=== PATIENT | male | born 1965 | race Caucasian/White ===

== ENCOUNTER 2022-08-05 11:40 | Emergency (ER) | payer MEDICARE ==
[2022-08-05 12:13] LABS: #Basophils 0.1 thou/uL (0.0-0.2); #Eosinphils 0.3 thou/uL (0.0-0.7); #Lymphocytes 1.3 thou/uL (1.20-3.40); %Basophils 0.5 % (0.0-1.0); %Eosinophils 3.2 % (0.0-10.0); %Lymphocytes 12.3 % (21.0-51.0); %Monocytes 9.6 % (0.0-10.0); %Neutrophils 74.4 % (42.0-75.0); Hemoglobin 18.3 g/dL (14.0-18.0); Mean Corpuscular HGB CONC 34.6 g/dL (32.0-36.0); Mean Corpuscular Hemoglobin 31.6 pg (27.0-31.0); Mean Corpuscular Volume 91.3 fl (78.0-98.0); Mean Platelet Volume 8.2 fL (7.4-10.4); Platelet Count 199 10x3/uL (130-400); RBC Distribution Width 13.2 % (11.5-14.5); White Blood Cell (WBC) Count 10.8 10x3/uL (4.8-10.8)
[2022-08-05 12:40] LABS: ALT (SGPT) 25 U/L (8-55); AST (SGOT) 22 U/L (5-34); Albumin 4.1 g/dL (3.5-5.0); Alkaline Phosphatase 136 U/L (40-110); Anion Gap 12 mmol/L (10-20); BUN (Urea Nitrogen) 14 mg/dL (8.4-25.7); Bilirubin, Total 0.8 mg/dL (0.2-1.2); Calc. Creatinine Clearance 0 mL/min (70-130); Calcium 9.8 mg/dL (7.8-10.44); Carbon Dioxide 28 mmol/L (22-29); Chloride 103 mmol/L (98-107); Estimated GFR 62; Glucose 177 mg/dL (70-105); Potassium 3.7 mmol/L (3.5-5.1); Protein, Total 7.1 g/dL (6.0-8.3); Sodium 139 mmol/L (136-145)
[2022-08-05] MEDS ORDERED: Levofloxacin 500 mg/D5W 100 ml Premix Bag ONE (14:14)
[2022-08-05] MEDS ORDERED: Fentanyl 250 MCG/5 ML VIAL ONE (14:18)
[2022-08-05] MEDS ORDERED: Ondansetron PF 4 MG/2 ML Vial ONE (14:31)
[2022-08-05] MEDS ORDERED: Lidocaine 1% PF 5 ML VIAL ONE (14:31)
[2022-08-05] MEDS ORDERED: Dexamethasone 20 MG/5 ML VIAL ONE (14:31)
[2022-08-05] MEDS ORDERED: PROPOFOL 200 MG/20 ML VIAL ONE (14:31)
[2022-08-05] MEDS ORDERED: Succinylcholine Chloride 100 MG/5 ML SYRINGE FS ONE (14:31)
[2022-08-05] MEDS ORDERED: Oxybutynin 5 MG TAB ONE (15:32)
[2022-08-05] MEDS ORDERED: Phenazopyridine HCl 100 MG TAB ONE (15:33)
[2022-08-11 11:16] LABS: CA Oxalate Dihydrate 50 % (.); CA Oxalate Monohydrate 50 % (.); Color Brown (.); Stone Weight 14 mg (.)
== END 2022-08-05 13:16 | disposition admitted as inpatient to this hospital (09) ==
LOC: ERS 11:40 → EDBD 11:40 → ERS 13:16
PROC: 0TCB8ZZ Extirpation of Matter from Bladder, Via Natural or Artificial Opening Endoscopic (ICD-10-PCS; principal; 2022-08-05)
PROC: 0T7D8DZ Dilation of Urethra with Intraluminal Device, Via Natural or Artificial Opening Endoscopic (ICD-10-PCS; 2022-08-05)
DX: R33.9 Retention of urine, unspecified (principal); I10 Essential (primary) hypertension; E78.5 Hyperlipidemia, unspecified; E11.9 Type 2 diabetes mellitus without complications; F17.220 Nicotine dependence, chewing tobacco, uncomplicated
CPT/HCPCS: 52282; 52352; 74176; 74420; 80053; 82365; 85025; 99285; C1769; 88300; J1100; J1956; J2405; J2704; J3010

== ENCOUNTER 2024-07-20 13:04 | Outpatient (CLI) | payer MEDICARE | END 2024-07-20 13:05 | disposition home or self-care (01) | LOC: CT 13:04 | PROVIDERS: ATTEND Urology | DX: N20.0 Calculus of kidney (principal) | CPT/HCPCS: 74176 ==